=== PATIENT | female | born 1985 | race Caucasian/White ===

== ENCOUNTER 2017-11-08 05:50 | Inpatient (IN) | payer BC ==
[2017-11-08] MEDS ORDERED: Buffered Lidocaine 0.9% SYRIN* 5 ML/SYR SYRINGE INTRADERM ONE (06:00)
[2017-11-08] MEDS ORDERED: Sodium Citrate/Citric Acid* 15 ML UDC PO ONE (06:00)
[2017-11-08] MEDS ORDERED: ceFOXitin 2 GM IVPREMIX* 2 GM/50 ML BAG ONE (06:49)
[2017-11-08] MEDS ORDERED: oxyCODONE TAB* 5 MG TAB PO PRN ×2 (08:07→09:35)
[2017-11-08] MEDS ORDERED: PROCHLORPERAZINE INJ 5 MG/ML 2 ML VIAL IV PRN ×2 (08:07→09:35)
[2017-11-08] MEDS ORDERED: Naloxone* 0.4 MG/ML 1 ML VIAL IV PRN ×2 (08:07→09:35)
[2017-11-08] MEDS ORDERED: fentaNYL* 50 MCG/ML 2 ML VIAL (100 MCG VIAL) IV PRN (08:07)
[2017-11-08] MEDS ORDERED: Scopolamine 1.5 mg* PATCH TRANSDERM PRN ×2 (08:07→09:35)
[2017-11-08] MEDS ORDERED: Lidocaine 2% PF * 5 ML VIAL ONE (08:21)
[2017-11-08] MEDS ORDERED: Phenylephrine IV* 40 MCG/ML 10 ML SYRINGE ONE (08:22)
[2017-11-08] MEDS ORDERED: Bupivacaine-MPF SPINAL* 7.5 MG/ML - 2ML AMP ONE (08:22)
[2017-11-08] MEDS ORDERED: Ondansetron ODT TAB* 4 MG ONE (08:23)
[2017-11-08] MEDS ORDERED: Dexamethasone IV* 4 MG/ML 1 ML (4 MG) ONE (08:23)
[2017-11-08] MEDS ORDERED: OXYTOCIN* 10 UNITS/ML 1 ML VIAL ONE (08:23)
[2017-11-08] MEDS ORDERED: Morphine PF AMP (0.5MG/ML)* 5 MG/10 ML AMP ONE (08:26)
[2017-11-08] MEDS ORDERED: Ondansetron INJ* 2 MG/ML VIAL IV PRN (09:35)
[2017-11-08] MEDS ORDERED: Nalbuphine* 10 MG/ML 1 ML VIAL IV PRN (09:35)
[2017-11-08] MEDS ORDERED: Ketorolac INJ* 30 MG/ML 1 ML VIAL IV SCH (09:45)
[2017-11-08] MEDS ORDERED: Acetaminophen IV 1GM/100ML * 1,000 MG/100 ML VIAL IVPB ONE (09:45)
[2017-11-08] MEDS ORDERED: Glycerin ADULT SUPP PR PRN (10:01)
[2017-11-08] MEDS ORDERED: Zolpidem TAB* 5 MG PO PRN (10:01)
[2017-11-08] MEDS ORDERED: Dibucaine 1% 28.35 GM TUBE PR PRN (10:01)
[2017-11-08] MEDS ORDERED: Witch Hazel PAD* JAR TOPICAL PRN (10:01)
--- NOTE | 2017-11-08 10:27 | PROCNOTE ---
[facility] OB: Delivery Note - Delivery A Date of : 11/08/17 [place] Sex: Female Score 1 Minute: 9 Score 5 Minutes: 10 Gestational Age in Weeks and Days at Delivery: 39 Weeks and 1 Days Delivery Method: Repeat Section Labor: Not in Labor Details: Scheduled Reason for Section: repeat and sterilization Did Patient attempt ?: No, Did not attempt Amniotic Fluid: Clear Estimated Blood Loss: 600 Anesthesia/Analgesia: Spinal for Anesthesia Comment: david Delivered By: Mahesh Julian - Nursery Level of Nursery: Regular/Bedside - Perineum Perineal Injury: None/Intact Perineal Repair: None - Events Delivery Events of Note: None Apply
[2017-11-08] MEDS ORDERED: Oxytocin in LR* 20 UNITS/1,000 ML BAG IVPB SCH (11:00)
[2017-11-08] MEDS: Simethicone TAB* 80 MG TAB.CHEW PO SCH ×2 (13:37→17:16)
--- NOTE | 2017-11-08 13:49 | OP ---
DATE OF OPERATION: 11/08/17 - ROOM #115 SURGEON: Mahesh Julian MD IRRIGATOR VALVE PIPE: Galileo Lamar CNM PRE-OP DIAGNOSIS: Desires permanent sterilization, and previous section. POST-OP DIAGNOSIS: Desires permanent sterilization, and previous section. OPERATIVE PROCEDURE: Low transverse section, bilateral tubal ligation using fimbriectomy. COMPLICATIONS: None. FINDINGS: Included viable female. Apgars 9 and 9, weight was 7 pounds 11 ounces, 3497 grams. Normal-appearing uterus, fallopian tubes, and ovaries. DESCRIPTION OF PROCEDURE: The patient identified and procedure identified as a low transverse section. The patient was taken to the operating room, prepped and draped in the usual fashion in left lateral recumbent position under spinal anesthesia. A Pfannenstiel incision was made in the abdomen through the old incision and carried down through the fat, fascia, and peritoneum. A transverse incision was made in the lower uterine segment and extended laterally using blunt dissection. The above infant was delivered through the incision with ease. The cord was doubly clamped and cut and the infant was handed to the awaiting media relations specialist. Cord blood was obtained. Placenta delivered spontaneously. The uterus was wiped out with a wet lap sponge. The uterine incision was then closed using 0 Polysorb in a running fashion. A second layer was used to imbricate the first layer. Hemostasis was verified. The right fallopian tube was grasped at its fimbriated ends and cross clamped and ligated x2 and then the fimbria was excised. Same procedure was carried on the left after following it out to its fimbriated ends. Good hemostasis was verified. The uterus was slid back into abdominal cavity. The peritoneum was then closed using 3-0 Polysorb in a running fashion. Good hemostasis achieved in the subrectus layers. The fascia was closed with 0 Polysorb in a running fashion. Hemostasis achieved in the subcu. 3-0 Polysorb was used to bring the space together and the skin was closed using 4-0 Monocryl in a subcuticular fashion. Mastisol and Steri-Strips were applied and the patient returned to the recovery room in stable condition. All sponge and instrument counts were correct. [id number]/[facility] #: [id number] [facility]
[2017-11-08] MEDS: Docusate CAP* 100 MG PO SCH (16:17)
[2017-11-08] MEDS ORDERED: Acetaminophen TAB* 325 MG PO SCH (18:00)
[2017-11-08] MEDS: Ketorolac INJ* 30 MG/ML 1 ML VIAL IV SCH (18:24)
[2017-11-09] MEDS: Simethicone TAB* 80 MG TAB.CHEW PO SCH ×4 (00:06→20:18)
[2017-11-09] MEDS: Docusate CAP* 100 MG PO SCH ×4 (00:07→20:17)
[2017-11-09] MEDS: Ketorolac INJ* 30 MG/ML 1 ML VIAL IV SCH ×2 (00:07→05:33)
[2017-11-09] MEDS ORDERED: Acetaminophen TAB* 325 MG PO PRN (01:00)
[2017-11-09] MEDS ORDERED: Scopolamine PATCH Remove* 1 NOTE MISC PATCH OFF PRN (01:00)
[2017-11-09] MEDS ORDERED: oxyCODONE/Acetamin 5/325 MG* TAB PO PRN (01:00)
[2017-11-09 07:31] LABS: ABS Basophils 0 10^3/ul (0-0.2); ABS Eosinophils 0 10^3/ul (0-0.6); ABS Lymphocytes 1.6 10^3/ul (1.0-4.8); ABS Monocytes 0.6 10^3/ul (0-0.8); ABS Neutrophils 6.2 10^3/ul (1.5-7.7); ABS Nucleated RBC 0 10^3/ul; Eosinophil % 0.4 % (0-6); Hematocrit 30 % (35-47); Hemoglobin 10.3 g/dl (12.0-16.0); Lymphocyte % 19.1 % (25-47); Mean Corpuscular HGB Conc 34 g/dl (31-36); Mean Corpuscular Hemoglobin 30 pg (27-31); Mean Corpuscular Volume 89 fL (80-97); Mean Platelet Volume 8.9 um3 (7.4-10.4); Nucleated Red Blood Cells % 0; Platelet Count 125 10^3/ul (150-450); Red Blood Count 3.38 10^6/ul (4.00-5.40); Red Cell Distribution Width 15 % (10.5-15); White Blood Count 8.5 10^3/ul (3.5-10.8)
[2017-11-09] MEDS ORDERED: Ferrous Gluconate TAB* 324 MG TAB PO SCH (09:00)
[2017-11-09] MEDS: oxyCODONE/Acetamin 5/325 MG* TAB PO PRN ×2 (10:04→20:17)
[2017-11-09] MEDS: Ibuprofen TAB* 600 MG PO PRN ×2 (12:36→20:17)
[2017-11-10] MEDS: Ibuprofen TAB* 600 MG PO PRN ×3 (03:25→17:06)
[2017-11-10] MEDS: oxyCODONE/Acetamin 5/325 MG* TAB PO PRN ×2 (03:26→20:33)
[2017-11-10] MEDS: Simethicone TAB* 80 MG TAB.CHEW PO SCH ×5 (08:27→20:30)
[2017-11-10] MEDS: Docusate CAP* 100 MG PO SCH ×3 (08:28→20:30)
[2017-11-11] MEDS: Ibuprofen TAB* 600 MG PO PRN (04:56)
[2017-11-11] MEDS: oxyCODONE/Acetamin 5/325 MG* TAB PO PRN (04:57)
[2017-11-11 07:43] VITALS: BP 110/66
[2017-11-11] MEDS ORDERED: Scopolamine PATCH Remove* 1 NOTE MISC PATCH OFF ONE (08:09)
[2017-11-11] MEDS: Docusate CAP* 100 MG PO SCH (10:21)
[2017-11-11] MEDS: Simethicone TAB* 80 MG TAB.CHEW PO SCH (10:21)
== END 2017-11-11 11:58 | disposition home or self-care (01) | DRG 540 ==
LOC: MCHOB 05:50
PROVIDERS: ADMIT Obstetrics & Gynecology; ATTEND Obstetrics & Gynecology
PROC: 0UB70ZZ Excision of Bilateral Fallopian Tubes, Open Approach (ICD-10-PCS; 2017-11-08)
PROC: 4A1HXCZ Monitoring of Products of Conception, Cardiac Rate, External Approach (ICD-10-PCS; 2017-11-08)
PROC: 10D00Z1 Extraction of Products of Conception, Low, Open Approach (ICD-10-PCS; principal; 2017-11-08 07:45)
DX: O34.211 Maternal care for low transverse scar from previous cesarean delivery (principal); Z3A.39 39 weeks gestation of pregnancy; Z37.0 Single live birth; Z30.2 Encounter for sterilization
CPT/HCPCS: 36415; 85025; 88302; A9270-GY; J0694; J1100; J1885; J2590